=== PATIENT | female | born 1985 | race Caucasian/White ===

== ENCOUNTER 2018-05-23 13:42 | Outpatient (CLI) | payer BC | END 2018-05-23 13:43 | disposition home or self-care (01) | LOC: BICRAD 13:42 | PROVIDERS: ATTEND Family Medicine | DX: S89.91XA Unspecified injury of right lower leg, initial encounter (principal); M81.0 Age-related osteoporosis without current pathological fracture ==

== ENCOUNTER 2018-10-08 14:46 | Outpatient (CLI) | payer BC ==
--- NOTE | 2018-10-08 16:02 | RAD ---
TWO VIEWS RIGHT FOREARM: Comparison: None. History: Injury, pain. FINDINGS: Two views of the right forearm shows no evidence of acute fracture or dislocation. No soft tissue swe lling is seen. No degenerative changes are seen. IMPRESSION: No evidence of acute osseous abnormality. POS: [facility]
--- NOTE | 2018-10-08 17:20 | RAD ---
RADIOGRAPH RIGHT ELBOW 4 VIEWS: 10/08/18 HISTORY: 33-year-old female status post acute traumatic injury to the elbow. FINDINGS: No evidence of distention of the joint capsule. No fracture, dislocation, or degenerative changes. No radiopaque foreign body or soft tissue calcifications. Joint spaces are maintained without erosions or osteophytes. IMPRESSION: Normal. POS: [facility]
--- NOTE | 2018-10-08 17:40 | RAD ---
RADIOGRAPH RIGHT KNEE 4 VIEWS: 10/08/18 HISTORY: 33-year-old female with right knee pain. COMPARISON: None available. FINDINGS: There is heterogeneous attenuation of the proximal tibial metadiaphysis, with multiple ill-defined, i rregularly shaped lucencies surrounded by more dense bone. There is questionable similar such, more s ubtle finding involving the proximal fibular metadiaphysis. A few centimeters more superiorly at the medial posterior aspect of the proximal tibial metaphysis, t here is a heterogeneously mildly sclerotic lesion measuring approximately 2.5 x 1 x 1.5 cm, with scle rotic rim. It broadly abuts the posterior and medial osseous cortical surface without cortical break through. The medial, lateral, and patellofemoral compartment joint spaces are maintained without erosions or o steophytes. No definite joint effusion. No fracture or dislocation. IMPRESSION: 1. Permeative pattern in the proximal tibial metadiaphysis. Although osteomyelitis and aggressiv e bone neoplasms can have this appearance, the fact that it is stable in appearance since 05/23/18 sug gests a more benign etiology, such as severe osteoporosis (which would still be abnormal for this age group). 2. Sclerotic lesion in the proximal tibial metaphysis has a benign appearance, perhaps a sclerot ic fibroxanthoma. 3. No degenerative changes of the knee. 4. No interval change overall since 05/23/18. 5. Recommend dedicated right leg tibia and fibula radiograph for further evaluation. POS: [facility]
== END 2018-10-08 14:47 | disposition home or self-care (01) ==
LOC: RAD 14:46
DX: S80.912A Unspecified superficial injury of left knee, initial encounter (principal); M79.631 Pain in right forearm; M89.9 Disorder of bone, unspecified